=== PATIENT | male | born 1985 | race Two or more races ===

== ENCOUNTER 2020-08-23 10:53 | Emergency (ER) | payer MEDICAID ==
[~2020-08-23] VITALS: Ht 172.7 cm; Wt 80.0 kg
--- NOTE | 2020-08-23 11:06 | NUR ---
PATIENT WHEELED BACK FROM TRIAGE WITH CHIEF C/O "DISLOCATED SHOULDER." PER PATIENT HE WAS VACUUMING AND LIFTED HIS RIGHT ARM AND SHOULDER POPPED OUT, TRIED POPPING BACK IN BUT DID NOT WORK. PATIENT HAS HISTORY OF DISLOCATING RIGHT SHOULDER. UPON ASSESSMENT OBVIOUS DEFORMITY NOTED ON RIGHT SHOULDER, PATIENT COMPLAINS OF 9/10 PAIN.
--- NOTE | 2020-08-23 11:06 | NUR ---
ERPA AT BEDSIDE FOR EVALUATION.
[2020-08-23] MEDS ORDERED: ONDANSETRON 2MG/ML, 2ML ONE (11:12)
[2020-08-23] MEDS ORDERED: MORPHINE SULFATE 4 MG/ML, 1ML ONE ×2 (11:12→11:48)
[2020-08-23] MEDS: MORPHINE SULFATE 4 MG/ML, 1ML IVPush PRN ×2 (11:21→11:50)
[2020-08-23] MEDS ORDERED: ONDANSETRON ODT 4 MG PO ONE (11:30)
[2020-08-23] MEDS ORDERED: SODIUM CHLORIDE FLUSH 10ML SYR IVF ONE (11:30)
[2020-08-23] MEDS ORDERED: ONDANSETRON 2MG/ML, 2ML IVPush ONE (11:30)
--- NOTE | 2020-08-23 11:32 | NUR ---
X-RAY AT BEDSIDE.
--- NOTE | 2020-08-23 12:08 | NUR ---
ERPA AND ERMD AT BEDSIDE TO PUT SHOULDER BACK IN PLACE.
[2020-08-23] MEDS ORDERED: PROPOFOL 10 MG/ML, 20ML ONE (13:02)
--- NOTE | 2020-08-23 13:19 | NUR ---
PROCEDURAL SEDATION PROCEDURE TIME OUT AT 1312, FIRST 40 MG PROPOFOL GIVEN AT 1313 AND SECOND DOSE OF 40 MG PROPOFOL GIVEN AT 1314, RIGHT SHOULDER REDUCTION DONE BY ARISD WITHOUT COMPLICATION.
--- NOTE | 2020-08-23 13:27 | NUR ---
X-RAY TECH AT BEDSIDE FOR POST-REDUCTION X-RAY.
--- NOTE | 2020-08-23 13:51 | NUR ---
A TOTAL OF 80 MG PROPOFOL GIVEN, 120 MG WASTED, ZORA, RN WITNESSED MEDICATION WASTE.
--- NOTE | 2020-08-23 13:52 | NUR ---
SPOKE WITH PATIENT'S FRIEND MARIA LUISA, HE WILL COME GIVE PATIENT A RIDE BACK HOME.
--- NOTE | 2020-08-23 14:03 | NUR ---
PATIENT WAKING UP, A&O X4, STATES PAIN IS RELIEVED, DOWN TO A 4/10 FROM 1010. PATIENT 98% RA.
[2020-08-23 14:10] VITALS: BP 128/77
--- NOTE | 2020-08-23 14:35 | NUR ---
FLOAT RN AT BEDSIDE TO ASSIST C PT'S DISCHARGE. PT'S SISTER, BETZY ARRIVED TO DRIVE PT HOME. PT AND FAMILY PROVIDED DC INSTRUCTIONS. VERBALIZED UNDERSTANDING. PT BACK TO BASELINE NINO SCORE AT TIME OF DC, AMBULATORY C STEADY GAIT. WHEELED TO CHECKOUT TO FACILITATE COMFORT.
== END 2020-08-23 14:40 | disposition home or self-care (01) ==
LOC: ED 14:00
DX: S43.004A Unspecified dislocation of right shoulder joint, initial encounter (principal); X58.XXXA Exposure to other specified factors, initial encounter; Y93.89 Activity, other specified; Y92.009 Unspecified place in unspecified non-institutional (private) residence as the place of occurrence of the external cause; Y99.8 Other external cause status
CPT/HCPCS: 23650; 73020; 73030; 96374; 96375; 99285; J2270; J2405